=== PATIENT | female | born 1995 | race Caucasian/White ===

== ENCOUNTER 2017-06-01 20:48 | Emergency (ER) | payer OTHER ==
[2017-06-01 22:07] LABS: URINE HCG POC HCG NEGATIVE (Negative)
== END 2017-06-01 23:12 | disposition home or self-care (01) ==
LOC: ER 20:48
DX: R07.89 Other chest pain (principal); R51 Headache; R42 Dizziness and giddiness; F41.9 Anxiety disorder, unspecified; V43.52XA Car driver injured in collision with other type car in traffic accident, initial encounter; Y93.I9 Activity, other involving external motion; Y92.410 Unspecified street and highway as the place of occurrence of the external cause; Y99.8 Other external cause status
CPT/HCPCS: 70450; 71046; 72125; 81025; 99284-25